=== PATIENT | female | born 1995 | race Caucasian/White ===

== ENCOUNTER 2018-03-23 19:11 | Emergency (ER) | payer MEDICAID, OTHER ==
[~2018-03-23] VITALS: Ht 162.6 cm; Wt 59.0 kg
--- NOTE | 2018-03-23 19:11 | NUR ---
CHEST PRESSURE, 6/10, NON RADIATING, AT THIS TIME SINCE 12PM. VSS NAD A/OX4 ABLE TO MAKE NEEDS KNOWN. WILL CONTINUE TO MONITOR FOR ANY CHANGES DURING THE SHIFT.
--- NOTE | 2018-03-23 19:12 | NUR ---
ER AT BEDSIDE FOR EVAL
--- NOTE | 2018-03-23 19:15 | NUR ---
EKG AT BEDSIDE
[2018-03-23 20:01] LABS: BASOPHILS % (AUTO) 0.5 % (0.0-2.0); EOSINOPHILS % (AUTO) 0.8 % (0.0-6.0); HEMATOCRIT 37 % (33-45); HEMOGLOBIN 12.8 g/dL (11.5-14.8); LYMPHOCYTES % (AUTO) 24.6 % (20.0-44.0); MEAN CORPUSCULAR HGB CONC 34 g/dl (31.0-36.0); MEAN CORPUSCULAR VOLUME 82 fL (82-100); MONOCYTES # (AUTO) 0.3 /CMM (0.1-1.30); NEUTROPHILS # (AUTO) 5.8 /CMM (1.8-8.9); NEUTROPHILS % (AUTO) 70.1 % (43.0-81.0); PLATELET COUNT (AUTO) 289 /CMM (150-450); RDW COEFFICIENT OF VARIATION 13.1 (11.5-15.0); RED BLOOD CELL COUNT(AUTO) 4.55 MIL/uL (4.0-5.2); WHITE BLOOD COUNT (AUTO) 8.2 K/uL (4.3-11.0)
[2018-03-23 20:12] LABS: CALCIUM, SERUM 9.5 mg/dL (8.5-10.1); CARBON DIOXIDE 23 mmol/L (21-32); CHLORIDE 104 mmol/L (98-107); CREATININE 0.7 mg/dL (0.6-1.3); GLUCOSE 102 mg/dL (74-106); POTASSIUM 3.9 mmol/L (3.5-5.1); SODIUM SERUM 138 mmol/L (136-145); UREA NITROGEN, BLOOD 7 mg/dL (7-18)
[2018-03-23 20:20] LABS: TROPONIN I < 0.017 ng/mL (0.00-0.056)
[2018-03-23 20:24] LABS: ALANINE AMINOTRANSFERASE 49 U/L (12-78); ALBUMIN 3.8 g/dL (3.4-5.0); ALKALINE PHOSPHATASE 77 U/L (46-116); ASPARTATE AMINOTRANSFERASE 24 U/L (15-37); BILIRUBIN,DIRECT 0.1 mg/dL (0.0-0.2); BILIRUBIN,TOTAL 0.3 mg/dL (0.2-1.0); TOTAL PROTEIN, SERUM 8.6 g/dL (6.4-8.2)
--- NOTE | 2018-03-23 21:19 | NUR ---
[employer] AT BEDSIDE
[2018-03-23 21:33] VITALS: BP 121/77
== END 2018-03-23 21:33 | disposition home or self-care (01) ==
LOC: ER 19:15
DX: K21.9 Gastro-esophageal reflux disease without esophagitis (principal); Z90.89 Acquired absence of other organs; F17.200 Nicotine dependence, unspecified, uncomplicated
CPT/HCPCS: 36415; 71045-TC; 80048-TC; 80076-TC; 84484-TC; 84703-TC; 85025-TC; 85378-TC; A4606; Z7610

== ENCOUNTER 2019-09-13 17:10 | Emergency (ER) | payer MEDICAID ==
[~2019-09-13] VITALS: Ht 157.5 cm; Wt 7.3 kg
--- NOTE | 2019-09-13 17:30 | NUR ---
CAME IN FOR HEADACHE X 3DAYS/ COUGH, FEVER -VOMITING,-DIARRHEA, TO ER BED 17,HOOKED TO MONITOR, RUDDY HERNANDEZ AT BEDSIDE
[2019-09-13] MEDS ORDERED: IBUPROFEN 600 MG TABLET PO ONE ×2 (18:00→18:04)
--- NOTE | 2019-09-13 18:05 | NUR ---
Patient discharged to home in stable condition. Written and verbal after care instructions given. Patient verbalizes understanding of instruction.
[2019-09-13 18:11] VITALS: BP 114/84
== END 2019-09-13 18:11 | disposition home or self-care (01) ==
LOC: ER 17:11
DX: J06.9 Acute upper respiratory infection, unspecified (principal); F17.200 Nicotine dependence, unspecified, uncomplicated; Z98.890 Other specified postprocedural states; Z90.89 Acquired absence of other organs

== ENCOUNTER 2019-11-23 19:35 | Emergency (ER) | payer MEDICAID, OTHER ==
[~2019-11-23] VITALS: Ht 162.6 cm; Wt 72.1 kg
[2019-11-23 20:08] VITALS: BP 131/78
--- NOTE | 2019-11-23 20:08 | NUR ---
PT AAOX4. BIB FAMILY FOR C/O COUGH AND PHLEGM X 8 DAYS. - FEVER. PA AT BEDSIDE FOR EVAL. NO ACUTE DISTRESS NOTED. VSS.
== END 2019-11-23 20:27 | disposition home or self-care (01) ==
LOC: ER 19:42
DX: J06.9 Acute upper respiratory infection, unspecified (principal); F17.200 Nicotine dependence, unspecified, uncomplicated; Z90.89 Acquired absence of other organs; Z98.890 Other specified postprocedural states